=== PATIENT | male | born 1950 | race Caucasian/White ===

== ENCOUNTER 2021-04-09 07:25 | Emergency (ER) | payer MEDICARE, OTHER ==
[~2021-04-09] VITALS: Ht 177.8 cm; Wt 72.6 kg
[2021-04-09 08:18] LABS: HEMOGLOBIN 14.1 gm/dl (14.0-17.5); RED BLOOD COUNT 4.73 M/UL (4.20-5.50); WHITE BLOOD COUNT 3.3 K/UL (4.5-11.0)
== END 2021-04-09 12:02 | disposition home or self-care (01) ==
LOC: ER1 07:25
PROVIDERS: Physician Assistant
DX: U07.1 COVID-19 (principal); E87.6 Hypokalemia; K21.9 Gastro-esophageal reflux disease without esophagitis; Z87.891 Personal history of nicotine dependence
CPT/HCPCS: 71045; 80053; 83690; 85025; 96374; 99284; J2405; J7030; U0002

== ENCOUNTER 2021-04-12 01:54 | Emergency (ER) | payer MEDICARE, OTHER ==
[2021-04-12 02:36] LABS: HEMOGLOBIN 13.8 gm/dl (14.0-17.5); RED BLOOD COUNT 4.65 M/UL (4.20-5.50); WHITE BLOOD COUNT 5.2 K/UL (4.5-11.0)
[2021-04-12 02:56] LABS: BUN/CREATININE RATIO 13 (0-10)
[2021-04-12] MEDS ORDERED: ASPIRIN CHEWABL81 MG PO (05:52)
[2021-04-12] MEDS ORDERED: DECADRON6 MG PO (05:52)
[2021-04-12] MEDS ORDERED: ZITHROMAX250 MG PO (05:52)
== END 2021-04-12 06:00 | disposition home or self-care (01) ==
LOC: ER1 01:54
PROVIDERS: Family Medicine
DX: U07.1 COVID-19 (principal); I10 Essential (primary) hypertension; K21.9 Gastro-esophageal reflux disease without esophagitis
CPT/HCPCS: 71045; 80053; 81001; 82550; 82553; 83690; 84484; 85025; 96374; 96375; 99284; J1885; J2405; Q9967

== ENCOUNTER 2021-04-15 03:09 | Emergency (ER) | payer MEDICARE, OTHER ==
[~2021-04-15 03:09] MED LIST: ASPIRIN CHEWABL81 MG PO; DECADRON6 MG PO; ZITHROMAX250 MG PO
== END 2021-04-15 05:37 | disposition left against medical advice (07) ==
LOC: ER1 03:09
DX: U07.1 COVID-19 (principal); I10 Essential (primary) hypertension
CPT/HCPCS: 36600; 71045; 82803; 99284